=== PATIENT | male | born 1985 | race Caucasian/White ===

== ENCOUNTER 2017-02-25 15:40 | Emergency (ER) | payer SELFPAY ==
[~2017-02-25] VITALS: Ht 182.9 cm; Wt 87.0 kg
[2017-02-25 15:41] VITALS: BP 119/80; PULSE 111; RESP 16; TEMP 98.5; O2SAT 100
[2017-02-25] MEDS ORDERED: IBUPROFEN 600 MG TAB PO ONE (16:00)
--- NOTE | 2017-02-25 16:14 | PD ---
HPI Chief Complaint: Injury Time Seen by Provider: 15:47 Travel History International Travel<30 days: No Contact w/Intl Traveler<30days: No Traveled to known affect area: No History of Present Illness HPI 31-year-old male presents to the emergency room for evaluation of right hand pain and swelling after injuring it last night. Patient states he tripped over a curb and fell with an outstretched arm. States his right fourth and fifth fingers bent all the way backwards. Since then he has had pain and weakness with extension. Pain is exacerbated with range of motion. Localized to fourth and fifth knuckles. Denies paresthesias. He took ibuprofen without relief in symptoms. Patient denies any other medical conditions or daily medications. [facility] Social History Alcohol Use: Yes Tobacco Use: Yes Allergies-Medications (Allergen,Severity, Reaction): Coded Allergies: penicillin V (Verified Allergy, Intermediate, hives, 02/25/17) butorphanol (Verified Allergy, Unknown, 02/25/17) celecoxib (Verified Allergy, Unknown, 02/25/17) sulfamethoxazole (Verified Allergy, Unknown, 02/25/17) trimethoprim (Verified Allergy, Unknown, 02/25/17) Review of Systems Except as stated in HPI: all other systems reviewed are Neg Physical Exam Narrative GENERAL: Well-nourished, well-developed male in no acute distress. Afebrile. Ambulatory. SKIN: Focused skin assessment warm/dry. Moderate ecchymosis of the right fourth and fifth MCP joints. HEAD: Normocephalic. EYES: No scleral icterus. No injection or drainage. NECK: Supple, trachea midline. No JVD or lymphadenopathy. CARDIOVASCULAR: Regular rate and rhythm without murmurs, gallops, or rubs. RESPIRATORY: Breath sounds equal bilaterally. No accessory muscle use. EXTREMITY: Right hand tender to palpation over the fourth and fifth MCP joints. Full range of motion in all joints. There is mild, localized edema. No obvious deformity. Less than 2 second capillary refill distally. Radial, ulnar , and median nerves intact. Slightly decreased strength secondary to pain. Data Data Last Documented VS Vital Signs Date Time Temp Pulse Resp B/P (MAP) Pulse Ox O2 Delivery O2 Flow Rate FiO2 02/25/17 15:41 98.5 111 16 119/80 (93) 100 Orders Orders Hand, Limited (2vws) (02/25/17 ) Ibuprofen (Motrin) (02/25/17 16:00) [facility] Medical Decision Making Medical Screen Exam Complete: Yes Emergency Medical Condition: Yes Medical Record Reviewed: Yes Differential Diagnosis Sprain, strain, contusion, ligament injury, fracture, muscle spasm Narrative Course 31-year-old male presents to the emergency room for evaluation of right fourth and fifth knuckle pain and swelling after hyperextension injury last night. Patient fell backwards and hyperextended his fingers. Denies any other injuries. Since then he has had pain with extension. Physical exam reveals moderate edema the right fourth and fifth fingers with localized ecchymosis. No obvious deformity. No rotation or angulation. Less than 2 second capillary refill distally. He was given ibuprofen for pain in the ED. X-ray is negative. This is hand sprain. Patient has full range of motion. Slightly decreased strength because of pain. He'll be treated conservatively with Luis wrap and told to follow-up with a PCP if symptoms persist. He understands and agrees to plan. Diagnosis Primary Impression: Sprain of right hand Qualified Codes: S63.91XA - Sprain of unspecified part of right wrist and hand , initial encounter Referrals: Primary Care Physician Additional Instructions: Take ibuprofen with food as directed, as needed for pain. Apply ice to the affected area for 20 minutes at a time, as needed for pain and swelling. Follow-up with a primary care physician. Return to the emergency room for worsening symptoms. Med/Other Pt SpecificInfo: Prescription(s) given Disposition: 01 DISCHARGE HOME Condition: Stable Sue Thompson Feb 25, 2017 16:14
--- NOTE | 2017-02-25 16:15 | RADRPT ---
EXAM DATE/TIME: 02/25/2017 16:09 [facility] COMPARISON: No previous studies available for comparison. INDICATIONS : Fall hurt lateral part of hand, swelling at fifth metacarpal. MEDICAL HISTORY : None. SURGICAL HISTORY : None. ENCOUNTER: Initial ACUITY: 1 day PAIN SCORE: 0/10 LOCATION: Right hand FINDINGS: Two view examination of the right hand demonstrates no soft tissue swelling, dislocation, or fracture . The joint spaces are maintained. Bony mineralization is normal. CONCLUSION: Unremarkable limited examination of the right hand. Garfield Blackburn Jr., MD on February 25, 2017 at 16:13 Board Certified Radiologist. This report was verified electronically.
== END 2017-02-25 16:28 | disposition home or self-care (01) ==
LOC: NEPK 15:40
DX: S63.91XA Sprain of unspecified part of right wrist and hand, initial encounter (principal); W01.0XXA Fall on same level from slipping, tripping and stumbling without subsequent striking against object, initial encounter; Z88.0 Allergy status to penicillin; Z88.2 Allergy status to sulfonamides; Z88.8 Allergy status to other drugs, medicaments and biological substances; Z72.0 Tobacco use
CPT/HCPCS: 73120; 99283

== ENCOUNTER 2017-03-02 05:11 | Emergency (ER) | payer SELFPAY ==
[~2017-03-02] VITALS: Ht 182.9 cm; Wt 87.0 kg
[2017-03-02 05:16] VITALS: BP 154/100; PULSE 68; RESP 16; TEMP 97.9
[2017-03-02] MEDS ORDERED: NAPROXEN 500 MG TAB PO ONE (05:45)
[2017-03-02] MEDS ORDERED: ONDANSETRON ODT 4 MG TAB PO ONE (05:45)
--- NOTE | 2017-03-02 06:26 | PD ---
HPI Chief Complaint: GI Complaint Time Seen by Provider: 05:44 Travel History International Travel<30 days: No Contact w/Intl Traveler<30days: No Traveled to known affect area: No History of Present Illness HPI This is a 31-year-old male who presents to the emergency department with nausea , several episodes of vomiting and epigastric abdominal discomfort following eating [employer]. He denies any diarrhea. His symptoms been constant for half an hour. He decided to check in to the emergency department after his did who was sick with the same thing. He denies any fevers or chills. He is also complaining of some pain in his right knee where he has some hardware. PFSH Past Medical History Anxiety: Yes Depression: Yes Diminished Hearing: No Hypertension: Yes Influenza Vaccination: Yes Past Surgical History Joint Replacement: Yes (left hip replaced 2012) Social History Alcohol Use: Yes Tobacco Use: Yes Substance Use: Yes Allergies-Medications (Allergen,Severity, Reaction): Coded Allergies: penicillin V (Verified Allergy, Intermediate, hives, 03/02/17) butorphanol (Verified Allergy, Unknown, 03/02/17) celecoxib (Verified Allergy, Unknown, 03/02/17) sulfamethoxazole (Verified Allergy, Unknown, 03/02/17) trimethoprim (Verified Allergy, Unknown, 03/02/17) Reported Meds & Prescriptions Reported Meds & Active Scripts Active No Active Prescriptions or Reported Medications Review of Systems Except as stated in HPI: all other systems reviewed are Neg Physical Exam Narrative GENERAL:Well appearing, no acute distress SKIN: Focused skin assessment warm and dry. HEAD: Atraumatic. Normocephalic. EYES: Pupils equal and round. No injection or drainage. ENT: Moist mucous membranes NECK: Trachea midline. CARDIOVASCULAR: Regular rate and rhythm. No murmur appreciated. RESPIRATORY: Clear to auscultation. Breath sounds equal bilaterally. GASTROINTESTINAL: Abdomen soft, non-tender, nondistended. MUSCULOSKELETAL: No obvious deformities. No effusion or warmth of the right knee. NEUROLOGICAL: Awake and alert. No obvious cranial nerve deficits. Moving all extremities. PSYCHIATRIC: Appropriate mood and affect; insight and judgment normal. Data Data Last Documented VS Vital Signs Date Time Temp Pulse Resp B/P (MAP) Pulse Ox O2 Delivery O2 Flow Rate FiO2 03/02/17 05:16 97.9 68 16 154/100 (118) Orders Orders Ondansetron Odt (Zofran Odt) (03/02/17 05:45) Naproxen (Naprosyn) (03/02/17 05:45) MDM Medical Decision Making Medical Screen Exam Complete: Yes Emergency Medical Condition: Yes Differential Diagnosis Food poisoning, gastritis, pancreatitis, appendicitis Narrative Course This is a 31-year-old male who presents to the emergency department with nausea and vomiting after eating [employer]. His is sick with similar symptoms. I suspect he has some food poisoning. I also suspect there is some secondary gain for his presentation as the patient and his are homeless. I don't hear requires any laboratory testing. He appears very well. Patient was given Zofran and naproxen and will be discharged in the morning. Diagnosis Primary Impression: Food poisoning Qualified Codes: T62.94XA - Toxic effect of unspecified noxious substance eaten as food, undetermined, initial encounter Patient Instructions: General Instructions Additional Instructions: If you develop lightheadedness, dizziness, persistent vomiting, inability to eat , or severe abdominal pain return to the emergency department. Followup with your primary care physician in 2-3 days if your symptoms have not resolved. Wash your hands aggressively after using the restroom as to not spread your illness to others. Do not return to work until your symptoms have resolved. Med/Other Pt SpecificInfo: No Change to Meds Scripts No Active Prescriptions or Reported Meds Disposition: 01 DISCHARGE HOME Condition: Stable Sejal Mari MD Mar 02, 2017 06:26
[2017-03-03] MEDS ORDERED: ZOFR4TAB3 SL (01:58)
== END 2017-03-02 06:51 | disposition home or self-care (01) ==
LOC: NEPE 05:11
DX: T62.91XA Toxic effect of unspecified noxious substance eaten as food, accidental (unintentional), initial encounter (principal); M25.561 Pain in right knee; F41.9 Anxiety disorder, unspecified; F32.9 Major depressive disorder, single episode, unspecified; I10 Essential (primary) hypertension; Z72.0 Tobacco use; Z88.0 Allergy status to penicillin; Z59.0 Homelessness; Z88.8 Allergy status to other drugs, medicaments and biological substances
CPT/HCPCS: 99283

== ENCOUNTER 2017-03-02 23:25 | Emergency (ER) | payer SELFPAY ==
[~2017-03-02] VITALS: Ht 182.9 cm; Wt 86.4 kg
[2017-03-02 23:35] VITALS: BP 126/82; PULSE 98; RESP 20; TEMP 97.9; O2SAT 99
[2017-03-03] MEDS ORDERED: ONDANSETRON HCL 4 MG/2 ML VIAL IV PUSH ONE (00:15)
[2017-03-03 00:27] LABS: AUTOMATED NEUTROPHIL # 6.8 TH/MM3 (1.8-7.7); BASOPHIL # 0.1 TH/MM3 (0-0.2); BASOPHIL % 0.6 % (0.0-2.0); EOSINOPHIL # 0.3 TH/MM3 (0-0.4); EOSINOPHIL % 2.3 % (0.0-4.0); HEMOGLOBIN 14.1 GM/DL (13.0-17.0); LYMPH % 28.4 % (9.0-44.0); LYMPHOCYTE # 3.1 TH/MM3 (1.0-4.8); MEAN CELL VOLUME 90.2 FL (80.0-100.0); MEAN CORPUSCULAR HGB CONC 34.3 % (32.0-36.0); MEAN PLATELET VOLUME 8.2 FL (7.0-11.0); MONO % 6.4 % (0.0-8.0); MONOCYTE # 0.7 TH/MM3 (0-0.9); NEUT % 62.3 % (16.0-70.0); PLATELET COUNT 304 TH/MM3 (150-450); RED BLOOD COUNT 4.54 MIL/MM3 (4.50-5.90); RED CELL DISTRIBUTION WIDTH 13.3 % (11.6-17.2); WHITE BLOOD COUNT 10.9 TH/MM3 (4.0-11.0)
[2017-03-03 00:38] LABS: ALBUMIN 3.5 GM/DL (3.4-5.0); ALT (GPT) 52 U/L (12-78); AST (GOT) 24 U/L (15-37); BICARBONATE 26.4 MEQ/L (21.0-32.0); BLOOD UREA NITROGEN 12 MG/DL (7-18); CALCIUM 8.3 MG/DL (8.5-10.1); CHLORIDE 107 MEQ/L (98-107); CREATININE 0.89 MG/DL (0.60-1.30); GLOMERULAR FILTRATION RATE 98 ML/MIN (>89); GLUCOSE,RANDOM 102 MG/DL (74-106); LIPASE 415 U/L (73-393); SODIUM (NA) 139 MEQ/L (136-145)
[2017-03-03 00:40] LABS: ALKALINE PHOSPHATASE 79 U/L (45-117); TOTAL BILIRUBIN ADULT 0.2 MG/DL (0.2-1.0); TOTAL PROTEIN 6.9 GM/DL (6.4-8.2)
[2017-03-03] MEDS ORDERED: IOHEXOL 350 MG/ML 10 ML VIAL (for RAD DIAG) IVCONTRAST ONE (01:23)
--- NOTE | 2017-03-03 01:48 | RADRPT ---
EXAM DATE/TIME: 03/03/2017 01:23 [facility] COMPARISON: No previous studies available for comparison. INDICATIONS : Abdominal pain. IV CONTRAST: 95 cc Omnipaque 350 (iohexol) IV ORAL CONTRAST: No oral contrast ingested. RADIATION DOSE: 6.54 CTDIvol (mGy) MEDICAL HISTORY : Hypertension. SURGICAL HISTORY : None. ENCOUNTER: Initial ACUITY: 1 day PAIN SCALE: 7/10 LOCATION: abdomen TECHNIQUE: Volumetric scanning of the abdomen and pelvis was performed. Using automated exposure control and ad justment of the mA and/or kV according to patient size, radiation dose was kept as low as reasonably achievable to obtain optimal diagnostic quality images. DICOM format image data is available electro nically for review and comparison. FINDINGS: LOWER LUNGS: Mild dependent atelectasis seen at both lung bases. LIVER: Homogeneous density without lesion. 21 cm cranial caudal. There is no dilation of the biliary tree. No calcified gallstones. SPLEEN: Normal size without lesion. PANCREAS: Within normal limits. KIDNEYS: Normal in size and shape. There is no mass, stone or hydronephrosis. ADRENAL GLANDS: Within normal limits. VASCULAR: Mural atherosclerosis seen of the lower abdominal aorta and bilateral common iliac arteries, well bey ond that expected for a patient this age. BOWEL/MESENTERY: The stomach, small bowel, and colon demonstrate no acute abnormality. There is no free intraperitone al air or fluid. Normal appendix. ABDOMINAL WALL: Within normal limits. RETROPERITONEUM: There is no lymphadenopathy. BLADDER: No wall thickening or mass. REPRODUCTIVE: Within normal limits. INGUINAL: There is no lymphadenopathy or hernia. MUSCULOSKELETAL: No acute bony abnormality demonstrated. Mild sacroiliac degenerative changes are noted. CONCLUSION: 1. No obstruction or acute inflammatory changes. 2. Mild nonspecific hepatomegaly. 3. Aortoiliac atherosclerosis. 4. Mild bibasilar atelectasis. iPpo Tran MD on March 03, 2017 at 1:43 Board Certified Radiologist. This report was verified electronically.
[2017-03-03] MEDS ORDERED: ZOFR4TAB3 SL (01:58)
--- NOTE | 2017-03-03 01:59 | PD ---
HPI Chief Complaint: GI Complaint Time Seen by Provider: 00:05 Travel History International Travel<30 days: No Contact w/Intl Traveler<30days: No Traveled to known affect area: No History of Present Illness HPI This is a 31-year-old male who presents to the emergency department with 2 days of abdominal discomfort, diffuse, constant, moderate severity feeling like cramping associated with multiple episodes of vomiting. He tried the pieces type is clear without. He denies any fevers or chills. He has no history of abdominal surgeries. I saw the patient last night and he was complaining of vomiting and abdominal pain after eating [employer]. He appeared quite well last night so I deferred any testing. Tonight he says his pain has persisted. PFSH Past Medical History Anxiety: Yes Depression: Yes Diminished Hearing: No Hypertension: Yes Past Surgical History Joint Replacement: Yes (left hip replaced 2012) Social History Alcohol Use: No Tobacco Use: Yes (1-2 PPD) Substance Use: Yes (MARIJUANA) Allergies-Medications (Allergen,Severity, Reaction): Coded Allergies: penicillin V (Verified Allergy, Intermediate, hives, 03/02/17) butorphanol (Verified Allergy, Unknown, 03/02/17) celecoxib (Verified Allergy, Unknown, 03/02/17) sulfamethoxazole (Verified Allergy, Unknown, 03/02/17) trimethoprim (Verified Allergy, Unknown, 03/02/17) Reported Meds & Prescriptions Reported Meds & Active Scripts Active No Active Prescriptions or Reported Medications Review of Systems Except as stated in HPI: all other systems reviewed are Neg Physical Exam Narrative GENERAL:Well appearing, no acute distress SKIN: Focused skin assessment warm and dry. HEAD: Atraumatic. Normocephalic. EYES: Pupils equal and round. No injection or drainage. ENT: Moist mucous membranes NECK: Trachea midline. CARDIOVASCULAR: Regular rate and rhythm. No murmur appreciated. RESPIRATORY: Clear to auscultation. Breath sounds equal bilaterally. GASTROINTESTINAL: Abdomen soft, mildly diffusely tender to palpation with no rebound or guarding. MUSCULOSKELETAL: No obvious deformities. NEUROLOGICAL: Awake and alert. No obvious cranial nerve deficits. Moving all extremities. PSYCHIATRIC: Appropriate mood and affect; insight and judgment normal. Data Data Last Documented VS Vital Signs Date Time Temp Pulse Resp B/P (MAP) Pulse Ox O2 Delivery O2 Flow Rate FiO2 03/02/17 23:35 97.9 98 20 126/82 (97) 99 Orders Orders Complete Blood Count With Diff (03/03/17 00:06) Comprehensive Metabolic Panel (03/03/17 00:06) Lipase (03/03/17 00:06) ^ Insert Iv (03/03/17 00:06) Ondansetron Inj (Zofran Inj) (03/03/17 00:15) Ct Abd/Pel W Iv Contrast(Rout) (03/03/17 ) Labs Laboratory Tests Test 03/03/17 00:05 White Blood Count 10.9 TH/MM3 Red Blood Count 4.54 MIL/MM3 Hemoglobin 14.1 GM/DL Hematocrit 41.0 % Mean Corpuscular Volume 90.2 FL Mean Corpuscular Hemoglobin 31.0 PG Mean Corpuscular Hemoglobin Concent 34.3 % Red Cell Distribution Width 13.3 % Platelet Count 304 TH/MM3 Mean Platelet Volume 8.2 FL Neutrophils (%) (Auto) 62.3 % Lymphocytes (%) (Auto) 28.4 % Monocytes (%) (Auto) 6.4 % Eosinophils (%) (Auto) 2.3 % Basophils (%) (Auto) 0.6 % Neutrophils # (Auto) 6.8 TH/MM3 Lymphocytes # (Auto) 3.1 TH/MM3 Monocytes # (Auto) 0.7 TH/MM3 Eosinophils # (Auto) 0.3 TH/MM3 Basophils # (Auto) 0.1 TH/MM3 CBC Comment DIFF FINAL Differential Comment Blood Urea Nitrogen 12 MG/DL Creatinine 0.89 MG/DL Random Glucose 102 MG/DL Total Protein 6.9 GM/DL Albumin 3.5 GM/DL Calcium Level 8.3 MG/DL Alkaline Phosphatase 79 U/L Aspartate Amino Transf (AST/SGOT) 24 U/L Alanine Aminotransferase (ALT/SGPT) 52 U/L Total Bilirubin 0.2 MG/DL Sodium Level 139 MEQ/L Potassium Level 3.9 MEQ/L Chloride Level 107 MEQ/L Carbon Dioxide Level 26.4 MEQ/L Anion Gap 6 MEQ/L Estimat Glomerular Filtration Rate 98 ML/MIN Lipase 415 U/L MDM Medical Decision Making Medical Screen Exam Complete: Yes Emergency Medical Condition: Yes Interpretation(s) No leukocytosis Electrolytes are reassuring Lipase is 400, not twice the upper limit of normal CT abdomen and pelvis: No acute abdominal process Differential Diagnosis Pancreatitis, gastritis, gastroenteritis, cystitis, colitis Narrative Course This is a 31-year-old male who presents to the emergency department with abdominal discomfort and vomiting. He is sleeping through most of our interview but he is diffusely tender on exam. Labs are all reassuring. I saw the patient last night and didn't order any labs because he had an unimpressive exam. Given he is returning I ordered labs and a CT scan. Everything is reassuring. Lipase is slightly elevated but not twice the upper limit of normal. I continue to suspect the patient has gastroenteritis. I think he can be discharged home. Diagnosis Primary Impression: Gastroenteritis Patient Instructions: General Instructions Additional Instructions: If you develop lightheadedness, dizziness, persistent vomiting, inability to eat , or severe abdominal pain return to the emergency department. Followup with your primary care physician in 2-3 days if your symptoms have not resolved. Wash your hands agressively after using the restroom as to not spread your illness to others. Do not return to work until your symptoms have resolved. Take Zofran as needed for nausea. Med/Other Pt SpecificInfo: Prescription(s) given Scripts Ondansetron Odt (Zofran Odt) 4 Mg Tab 4 MG SL Q6HR Y for Nausea/Vomiting, #15 TAB 0 Refills Prov: Sejal Mari MD 03/03/17 Disposition: 01 DISCHARGE HOME Condition: Stable Sejal Mari MD Mar 03, 2017 01:59
== END 2017-03-03 02:44 | disposition home or self-care (01) ==
LOC: NEPC 23:25
DX: K52.9 Noninfective gastroenteritis and colitis, unspecified (principal); R16.0 Hepatomegaly, not elsewhere classified; J98.11 Atelectasis; F41.9 Anxiety disorder, unspecified; F32.9 Major depressive disorder, single episode, unspecified; I10 Essential (primary) hypertension; F17.200 Nicotine dependence, unspecified, uncomplicated; Z88.0 Allergy status to penicillin
CPT/HCPCS: 74177; 80053; 83690; 85025; 96374; 99285; J2405; Q9967